=== PATIENT | male | born 1960 | race Caucasian/White ===

== ENCOUNTER → 2016-06-13 | Day surgery (SDC) | payer OTHER ==
[~2016-06-13] VITALS: Ht 177.8 cm; Wt 86.3 kg
[~2016-06-13] MED LIST: ACETAMINOPHEN 1000 MG/100 ML VIAL IV ONE; ASPI1TAB69 PO; BUPIVACAINE LIPOSOME PF 1.3% 20 ML VIAL INFIL ONE; DO NOT ADM ANY ANTICOAGULANT DRUGS XX PRN; FAMOTIDINE 20 MG/2 ML VIAL ONE; KETOROLAC TROMETHAMINE 30 MG/ML (IVP) VIAL IV PUSH ONE; KETOROLAC TROMETHAMINE 30 MG/ML (IVP) VIAL ONE; MIDAZOLAM HCL 2 MG/2 ML VIAL ONE; MORPHINE SULFATE 4 MG/ML INJ IV PRN; ONDANSETRON HCL 4 MG/2 ML VIAL IV PRN; ONDANSETRON HCL 4 MG/2 ML VIAL IV PUSH ONE; PROPOFOL 200 MG/20 ML AMP IV ONE; ROSU10 PO; SODIUM CHLORIDE 0.9% FLUSH 10 ML FLUSH IV FLUSH PRN; ZETI10TA5 PO; ceFAZolin 2 GM PREMIX 50 ML IV SCH; fentaNYL CITRATE 250 MCG/5 ML AMP ONE; oxyCODONE/ACETAMINOPHEN 5 MG/325 MG TAB PO PRN
[2016-06-13 06:38] VITALS: BP 134/78; PULSE 55; RESP 18; TEMP 98.1; O2SAT 95
[2016-06-13 11:20] VITALS: BP 129/72; PULSE 59; RESP 18; TEMP 97.4; O2SAT 96
--- NOTE | 2016-06-13 15:40 | PD.OP ---
cc: Alexis Miranda MD; Ismael Sidhu DO Operative Report Date of Surgery: Jun 13, 2016 Preoperative Diagnosis: Left inguinal hernia Postoperative Diagnosis: Left inguinal hernia Procedure: Repair of left inguinal hernia with pro-supervisor building maintenance mesh Anesthesia: Gen. Surgeon: Alexis Miranda Motorcycle Mechanic(s): Bryon Waller MS 3 Operation and Findings: Operative findings: The patient was found to have a relatively large indirect inguinal hernia with a portion of an appendices epiploica as part of the hernia sac. The transversalis medial to the internal ring was grossly attenuated. There is no evidence of direct inguinal hernia. Operative procedure: The patient was brought to the operating room, and after satisfactory general and after satisfactory general anesthesia was obtained, the abdomen was prepped and draped in usual sterile fashion. 0.5% Exparel was used to infiltrate the skin for local anesthesia. A transverse left inguinal incision was made, carried out sharply through the subcutaneous tissue, with the cautery being used for hemostasis. Incision was deepened to the external oblique fascia which was opened in the direction of its fibers down to and through the external ring. The underside of the fascia was cleaned and the spermatic cord was isolated with a David drain. The indirect hernia sac was identified and dissected free from the surrounding structures. A large lipoma the cord was also dissected free with the cautery and discarded. The hernia sac was then reduced within the properitoneal space without problem. The inguinal floor was reapproximated by bringing interrupted 0 Vicryl sutures between the internal oblique fascia and the shelving edge of the inguinal ligament. Once the internal ring and been re-created a piece of pro-supervisor building maintenance mesh was cut to the appropriate shape. It was secured anterior to the floor by pressing its posterior Vicryl hooks into the surrounding tissues. The mesh was wrapped around the cord to provide a new internal ring. It was then secured to the pubis with a single suture of 0 Prolene. Hemostasis was checked for and found be satisfactory. The testicle was returned to its alutiiq location in the scrotal sac. The external oblique fascia was closed with a running 3-0 Vicryl suture. The subcutaneous tissue was closed with interrupted 3-0 Vicryl sutures and skin closed with interrupted 4-0 PDS subcuticular stitches. Steri-Strips were applied and the patient was then taken from the operating room, satisfactory condition, having tolerated the procedure without pollen. Estimated blood loss was less than 5 mL's. The isthmic, sponge, and needle counts were reported as being correct 2 at the end of procedure. Alexis Miranda MD Jun 13, 2016 15:40
== END | disposition home or self-care (01) ==
LOC: HSDC 05:55
PROVIDERS: ATTEND Surgery
DX: K40.90 Unilateral inguinal hernia, without obstruction or gangrene, not specified as recurrent (principal)
CPT/HCPCS: 00830; 49505; C1781; C9290; J0131; J0690; J1885; J2250; J2405; J3010